=== PATIENT | female | born 1985 | race Caucasian/White ===

== ENCOUNTER 2017-09-14 13:19 | Emergency (ER) | payer OTHER ==
[2017-09-14 13:24] VITALS: BMI 22.1
--- NOTE | 2017-09-14 13:45 | PDOC ---
History of Present Illness - General Chief Complaint: Respiratory Stated Complaint: NEAR SYNCOPE/SYNCOPE, FLU LIKE SYMPTOMS Time Seen by Provider: 09/14/17 13:42 Past History - Past Medical History Allergies/Adverse Reactions: Allergies Allergy/AdvReac Type Severity Reaction Status Date / Time No Known Allergies Allergy Verified 09/14/17 13:24 COPD: No - Suicide/Smoking/Psychosocial Hx Smoking History: Never smoked *Physical Exam - Vital Signs Last Vital Signs Temp Pulse Resp BP Pulse Ox 101.7 F H 124 H 20 119/76 98 09/14/17 13:21 09/14/17 13:21 09/14/17 13:21 09/14/17 13:21 09/14/17 13:21 *DC/Admit/Observation/Transfer - Referrals - Patient Instructions - Post Discharge Activity - Attestations Physician Attestion: 09/14/17 13:45 I, Dr. Gil Pinedo, attest that this document has been prepared under my direction and personally reviewed by me in its entirety. I further attest, that it accurately reflects all work, treatment, procedures and medical decision -making performed by me.
[2017-09-14] MEDS ORDERED: SODIUM CHLORIDE 1,000 ML IV STA (14:04)
[2017-09-14] MEDS ORDERED: ACETAMINOPHEN 325 MG TABLET (FP) PO ONE (14:09)
--- NOTE | 2017-09-14 14:09 | PDOC ---
Attending Attestation - Resident Resident Name: José Foster - ED Attending Attestation I have performed the following: I have examined & evaluated the patient, The case was reviewed & discussed with the resident, I agree w/resident's findings & plan, Exceptions are as noted - HPI HPI: 09/14/17 14:01 Syncope/ Flu like symptoms - Physicial Exam PE: 09/14/17 14:08 VSS NAD - Medical Decision Making 09/14/17 14:[address] Foster Assessment and Plan
--- NOTE | 2017-09-14 14:12 | PDOC ---
History of Present Illness - General Chief Complaint: Respiratory Stated Complaint: NEAR SYNCOPE/SYNCOPE, FLU LIKE SYMPTOMS Time Seen by Provider: 09/14/17 13:42 History Source: Patient Exam Limitations: No Limitations - History of Present Illness Initial Comments: 09/14/17 14:06 Patient is a 32F with no significant medical history here today complaining of flu-like symptoms and syncope. Patient describes having body aches, fever, and diffuse body aches for the past two days. She did not receive a flu shot. She reports a sick contact at work. She also states that she syncopized. She states she started feeling dizzy, hot and collapsed to the ground, hitting her face. She states that she thinks she was unconscious, but not for long. She quickly returned to normal. Denies vomiting, decreased PO intake. Past History - Past Medical History Allergies/Adverse Reactions: Allergies Allergy/AdvReac Type Severity Reaction Status Date / Time No Known Allergies Allergy Verified 09/14/17 13:24 Home Medications: Ambulatory Orders NK [No Known Home Medication] 09/14/17 COPD: No - Suicide/Smoking/Psychosocial Hx Smoking History: Never smoked Review of Systems - Review of Systems Comments:: 09/14/17 14:27 GENERAL/CONSTITUTIONAL: Positive for fever and chills. HEAD, EYES, EARS, NOSE AND THROAT: No change in vision. No sore throat. CARDIOVASCULAR: No chest pain or shortness of breath RESPIRATORY: Positive for cough. Negative for wheezing, or hemoptysis. GASTROINTESTINAL: No nausea, vomiting, diarrhea or constipation. GENITOURINARY: No dysuria, frequency, or change in urination. MUSCULOSKELETAL: Positive for diffuse bodyaches. SKIN: No rash NEUROLOGIC: Positive for headache. No change in strength/sensation. ALLERGIC/IMMUNOLOGIC: No hives or skin allergy. *Physical Exam - Vital Signs Last Vital Signs Temp Pulse Resp BP Pulse Ox 101.7 F H 124 H 20 119/76 98 09/14/17 13:21 09/14/17 13:21 09/14/17 13:21 09/14/17 13:21 09/14/17 13:21 - Physical Exam Comments: 09/14/17 14:28 GENERAL: Awake, alert, and fully oriented, in no acute distress HEAD: Normocephalic, two small abrasions over right eye and right cheek. EYES: PERRLA, EOMI, sclera anicteric, conjunctiva clear ENT: Auricles normal inspection, hearing grossly normal, nares patent, oropharynx clear without exudates. Moist mucosa. No loose teeth, no blood in oropharynx NECK: Normal ROM, supple, no lymphadenopathy, JVD, or masses, no midline tenderness LUNGS: No distress, speaks full sentences, clear to auscultation bilaterally HEART: Regular rate and rhythm, normal S1 and S2, no murmurs, rubs or gallops, peripheral pulses normal and equal bilaterally. ABDOMEN: Soft, nontender, normoactive bowel sounds. No guarding, no rebound. No masses EXTREMITIES: Normal inspection, Normal range of motion, no edema. No clubbing or cyanosis. NEUROLOGICAL: Cranial nerves II through XII grossly intact. Normal speech, normal gait, no focal sensorimotor deficits SKIN: Warm, Dry, normal turgor, no rashes or lesions noted. ED Treatment Course - LABORATORY CBC & Chemistry Diagram: 09/14/17 14:04 09/14/17 14:04 - RADIOLOGY Radiology Studies Ordered: Category Date Time Status CHEST PA & LAT [RAD] Stat Radiology 09/14/17 14:04 Ordered Medical Decision Making - Medical Decision Making 09/14/17 14:30 32F with no medical history here today with syncope and viral symptoms. Vital signs notable for fever. Can clear head with [place] rule. Can clear neck with nexus. Will treat with iv fluids and tylenol. Will evaluate with cbc, cmp, trop , mag, coags, ua, upreg, cxr. 09/14/17 15:16 Flu positive. Laboratory Tests 09/14/17 09/14/17 14:04 14:04 WBC 4.2 Hgb 13.4 Hct 40.6 Plt Count 175 Urine Nitrite Negative Urine HCG, Qual Negative Upreg negative. UA negative. CBC normal. CMP pending. 09/14/17 15:35 EKG shows normal sinus rhythm, normal rate. No st elevations/depressions. No t wave abnormalities. CMP unremarkable. Patient reassessed. Says that she's feeling better. Tolerating PO. Ambulatory. Has PCP. Will discharge with PCP follow up in the next week and return precautions. *DC/Admit/Observation/Transfer Diagnosis at time of Disposition: Flu - Discharge Dispostion Disposition: HOME Condition at time of disposition: Good Admit: No - Referrals Referrals: Bong Perez [Primary Care Provider] - - Patient Instructions Printed Discharge Instructions: DI for Influenza -- Adult Additional Instructions: Please return if you have any new, worsening or concerning symptoms. Please follow up with your PCP next week. - Post Discharge Activity Forms/Work/School Notes: Back to Work
[2017-09-14] MEDS ORDERED: ACETAMINOPHEN 325 MG TABLET (FP) ONE (14:35)
[2017-09-14 14:43] LABS: BASO % 0.3 % (0-2.0); EOS % 0.1 % (0-4.5); LYMPH # 0.5; MCH 30.6 pg (25.7-33.7); MCHC 32.9 g/dl (32.0-36.0); MEAN CELL VOLUME 92.9 fl (80-96); MONO # 0.7 #; NEUT # 3.1 #; NEUT % 73.1 % (42.8-82.8); PLATELET COUNT 175 K/MM3 (134-434); RDW 13.2 % (11.6-15.6); WHITE BLOOD COUNT 4.2 K/mm3 (4.0-10.0)
[2017-09-14 14:50] LABS: URINE APPEARANCE CLEAR; URINE BILIRUBIN NEGATIVE (NEGATIVE); URINE BLOOD NEGATIVE (NEGATIVE); URINE COLOR LTYELLOW; URINE GLUCOSE (UA) NEGATIVE (NEGATIVE); URINE KETONE TRACE (NEGATIVE); URINE LEUK ESTERASE NEGATIVE (NEGATIVE); URINE NITRITE NEGATIVE (NEGATIVE); URINE PROTEIN NEGATIVE (NEGATIVE); URINE UROBILINOGEN NEGATIVE mg/dL (0.2-1.0)
[2017-09-14 14:56] LABS: INR 1.12 (0.82-1.09); PROTHROMBIN TIME (PATIENT) 12.6 SEC (9.98-11.88)
[2017-09-14 15:09] LABS: ALBUMIN 3.6 g/dl (3.4-5.0); ANION GAP 8 (8-16); BILIRUBIN,TOTAL 0.3 mg/dL (0.2-1.0); CO2 26 mmol/L (21-32); CREATININE 0.8 mg/dL (0.55-1.02); GLUCOSE,RANDOM 84 mg/dL (74-106); SGPT/ALT 32 U/L (12-78)
[2017-09-14 15:12] LABS: ALK PHOS 43 U/L (45-117); TOT PROT 7.7 g/dl (6.4-8.2); TROPONIN I < 0.02 ng/ml (0.00-0.05)
[2017-09-14 15:16] LABS: CPK 202 IU/L (26-192); MAGNESIUM 1.9 mg/dL (1.8-2.4); SGOT/AST 53 U/L (15-37)
[2017-09-14 16:05] VITALS: BP 115/72; PULSE 93; TEMP 99
[2017-09-14 18:33] LABS: URINE LEUK ESTERASE Negative (NEGATIVE)
--- NOTE | 2017-09-15 09:49 | EKG ---
Test Reason : Blood Pressure : / mmHG Vent. Rate : 094 BPM Atrial Rate : 094 BPM P-R Int : 140 ms QRS Dur : 078 ms QT Int : 352 ms P-R-T Axes : 058 050 045 degrees QTc Int : 440 ms NORMAL SINUS RHYTHM WITH SINUS ARRHYTHMIA NO PREVIOUS ECGS AVAILABLE Confirmed by TAMMY CASILLAS MD ([id number]) on 09/15/2017 9:49:25 AM Referred By: Confirmed By:TAMMY CASILLAS MD
== END 2017-09-14 15:54 | disposition home or self-care (01) ==
LOC: JER 13:19
PROC: 3E0337Z Introduction of Electrolytic and Water Balance Substance into Peripheral Vein, Percutaneous Approach (ICD-10-PCS; principal; 2017-09-14)
DX: J10.1 Influenza due to other identified influenza virus with other respiratory manifestations (principal); R55 Syncope and collapse
CPT/HCPCS: 36415; 71020-TC; 80053; 81003; 82550; 82553; 83735; 84484; 84703; 85025; 85610; 87804; 93005; 93010; 99284-25